=== PATIENT | female | born 1970 | race American Indian/Alaskan Native ===

== ENCOUNTER → 2018-07-12 | Outpatient (CLI) | payer MEDICARE, OTHER ==
[2018-07-12 11:36] LABS: Blood Urea Nitrogen 9 mg/dL (7-17)
--- NOTE | 2018-07-12 13:04 | Cat Scan Report ---
CT ABDOMEN PELVIS WITH AND WITHOUT CONTRAST: HISTORY: Primary hyperaldosteronism. COMPARISON: none. TECHNIQUE: Helical CT in 1.25mm intervals before and after IV contrast. Sagittal and coronal reconstructions. FINDINGS: Lung bases: Normal. Liver: The liver is mildly enlarged with moderate diffuse fatty infiltration. No focal liver mass is identified. Biliary system: Normal. Pancreas: Normal. Spleen: Normal. Kidneys/ureters/bladder: Normal. Adrenal glands: Normal. No evidence for adrenal mass. Aorta: Normal. Intestines: Normal. Appendix: Normal. Pelvic viscera: The uterus is small in size or has been surgically removed. No adnexal lesion is identified. Ascites: None. Adenopathy: None. Musculoskeletal: Normal. IMPRESSION: Mild hepatomegaly with diffuse fatty infiltration. No evidence for adrenal mass. Otherwise, unremarkable exam of the abdomen and pelvis.
== END | disposition home or self-care (01) ==
LOC: CT 11:00
DX: E26.9 Hyperaldosteronism, unspecified (principal); R16.0 Hepatomegaly, not elsewhere classified; Z88.6 Allergy status to analgesic agent; Z88.1 Allergy status to other antibiotic agents; Z88.2 Allergy status to sulfonamides
CPT/HCPCS: 36415; 74178; 82565; 84520; Q9967